=== PATIENT | female | born 1995 | race Caucasian/White ===

== ENCOUNTER 2020-11-05 08:13 | Inpatient (IN) | payer BC ==
[~2020-11-05] VITALS: Ht 157.5 cm; Wt 61.4 kg
--- NOTE | 2020-11-05 23:45 | NUR ---
2345- PATIENT AND SPOUSE AMBULATORY TO THE UNIT. PATIENT IS A DR. WALSH PATIENT AT 40 WEEKS HERE FOR CYTOTEC INDUCTION. PATIENT ORIENATED TO ROOM AND CHANGED INTO CLEAN GOWN. PATIENT REPORTS, GFM, NO LOF AND OCCASIONAL CONTRACTIONS. 2266- EFM AND TOCO ON AND TRACING. VITALS TAKEN, ASSESSMENT COMPLETED. IV STARTED. PLAN OF CARE DISCUSSED. PATIENT VERBALIZED UNDERSTANDING WITH NO FURTHER QUESTIONS. CALL LIGHT WITHIN REACH.
[2020-11-06] VITALS (62 sets, daily range): BP systolic 97–137; BP diastolic 50–80; PULSE 48–136; TEMP 97.4–98.3
[2020-11-06] MEDS ORDERED: NATURAL IRON65 MG (00:34)
[2020-11-06] MEDS ORDERED: PRENATAL TABLET PO (00:34)
[2020-11-06] MEDS ORDERED: PROBIOTIC DIGE1 EACH PO (00:35)
[2020-11-06 01:26] LABS: BASO % 0.2 % (0.0-2.0); EOS # 0.1 (0.0-0.7); EOS % 0.8 % (0-4.0); GRAN # 5.6 (1.4-6.5); GRAN % 66.7 % (42.2-75.2); HEMATOCRIT 39.7 % (37.0-47.0); HEMOGLOBIN 13.2 g/dl (12.5-16.0); LYMPH # 2.1 (1.2-3.4); LYMPH % 25.3 % (20.0-51.0); MEAN CELL VOLUME 90 fl (80.0-100.0); MEAN CORPUSCULAR HEMOGLOBIN 30 pg (27.0-31.0); MEAN CORPUSCULAR HGB CONC 33 g/dl (33.0-37.0); MONO # 0.5 (0.1-0.6); MONO % 6.5 % (1.7-9.3); PLATELET COUNT 162 K/mm3 (130-400); RED BLOOD COUNT 4.39 M/mm3 (4.10-5.30); REDCELL DISTRIBUTION WIDTH-CV 13.9 % (11.5-14.5)
--- NOTE | 2020-11-06 06:45 | NUR ---
Care of pt assumed by this RN from Debbi Young RN. Pt off monitors to ambulate prior. Placed back on monitors by this RN. 0705-Dr. Hernandez at bedside. SVE per provider with AROM of clear fluid. Orders to obtain BS q 2 hours during labor. Pericare provided. Pt updated on POC. No questions or concerns at this time.
--- NOTE | 2020-11-06 07:30 | NUR ---
Pt SBGM: 81
--- NOTE | 2020-11-06 09:30 | NUR ---
SBGM: 62
--- NOTE | 2020-11-06 11:30 | NUR ---
SBGM: 85
--- NOTE | 2020-11-06 11:32 | NUR ---
Late deceleration noted. Pt repostioned LL. LR bolus infusing. 1138-Dr. Hernandez at bedside. SVE per provider /-2. 1139-Late deceleration noted. Pt repositioned RL. LR bolus continues to infuse. 1140-Late deceleration noted for approximately 60 secons in the 90s at lowest eros. Pitocin shut off. Pt repositioned LL. Ephedrine given See EMAR.
--- NOTE | 2020-11-06 13:30 | NUR ---
Pt SBGM: 137
--- NOTE | 2020-11-06 16:30 | NUR ---
Dr. Hernandez at bedside. SVE per provider /+1. 1730-Provider remains on unit. SVE per provider C/+1. Begins pushing with patient. 1906- of viable attended by Dr. Hernandez. Cord clamped and cut x2. Infant dried and placed on mother's abdomen and then taken to warmer. Care of to Carlos Stuart RN. 1908- of placenta. Pitocin bolus infusing per protocol. Fundus firm at umbilicus. Bleeding WNL. Laceration repaired per provider. Pericare performed. Ice pack applied. Pt updated on POC. Bed locked in low position. Call light within reach. No questions or concerns at this time.
[2020-11-06] MEDS ORDERED: MOTRIN 800800 MG/TAB PO (21:19)
[2020-11-06] MEDS ORDERED: PERCOCET 325 MG1 TA2 PO (21:20)
[2020-11-07 03:00] VITALS: BP 102/58; PULSE 95; TEMP 97.8
[2020-11-07 07:34] VITALS: BP 96/58; PULSE 86; TEMP 98.3
--- NOTE | 2020-11-07 11:05 | NUR ---
Initial visit; Parents thanked [employer] for offering Congratulations on the of their daughter. [employer] thanked family for choosing [facility].
[2020-11-07 13:05] VITALS: BP 93/51; PULSE 120; TEMP 97.9
[2020-11-07 16:24] VITALS: BP 101/53; PULSE 105; TEMP 97.9
[2020-11-07 19:25] VITALS: BP 107/56; PULSE 62; TEMP 98.1
[2020-11-08 09:03] VITALS: BP 110/63; PULSE 92; TEMP 98.1
== END 2020-11-08 15:19 | disposition home or self-care (01) | DRG 806 ==
LOC: OB 08:13 → LDR 23:31 → OB 11-06 22:00
PROVIDERS: ADMIT Obstetrics & Gynecology
PROC: 10E0XZZ Delivery of Products of Conception, External Approach (ICD-10-PCS; principal; 2020-11-06)
PROC: 0KQM0ZZ Repair Perineum Muscle, Open Approach (ICD-10-PCS; 2020-11-06)
PROC: 10907ZC Drainage of Amniotic Fluid, Therapeutic from Products of Conception, Via Natural or Artificial Opening (ICD-10-PCS; 2020-11-06)
PROC: 3E033VJ Introduction of Other Hormone into Peripheral Vein, Percutaneous Approach (ICD-10-PCS; 2020-11-06)
PROC: 3E0P7VZ Introduction of Hormone into Female Reproductive, Via Natural or Artificial Opening (ICD-10-PCS; 2020-11-06)
DX: O48.0 Post-term pregnancy (principal); O99.354 Diseases of the nervous system complicating childbirth; Z37.0 Single live birth; O44.03 Complete placenta previa NOS or without hemorrhage, third trimester; O24.420 Gestational diabetes mellitus in childbirth, diet controlled; Z3A.41 41 weeks gestation of pregnancy; O99.02 Anemia complicating childbirth; G40.909 Epilepsy, unspecified, not intractable, without status epilepticus; O70.1 Second degree perineal laceration during delivery; D64.9 Anemia, unspecified
CPT/HCPCS: J2590; J7120